=== PATIENT | female | born 2000 | race Caucasian/White ===

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

== ENCOUNTER → 2024-01-08 | Outpatient (CLI) | payer BC ==
--- NOTE | 2024-01-08 12:23 | US ---
EXAMINATION TYPE: US kidneys/renal and bladder DATE OF EXAM: 01/08/2024 COMPARISON: NONE CLINICAL INDICATION: Female, 23 years old with history of N13.30 UNSPECIFIED HYDRONEPHROSIS; pt state s she had a CT at [facility] in November and it showed hydro in left kidney EXAM MEASUREMENTS: Right Kidney: 10.1 x 4.7 x 3.7 cm Left Kidney: 10.9 x 6.3 x 5.7 cm Right Kidney: dilated renal pelvis Left Kidney: dilated renal pelvis Bladder: wnl Bilateral Jets seen: No No nephrolithiasis is seen. No masses are identified. The urinary bladder is anechoic. Bilateral u reteral jets are seen. IMPRESSION: Mild hydronephrosis.
== END | disposition home or self-care (01) ==
LOC: RADUSWWP 11:18
PROVIDERS: ATTEND Urology
DX: N13.30 Unspecified hydronephrosis (principal)
CPT/HCPCS: 76770

== ENCOUNTER → 2024-05-02 | Outpatient (CLI) | payer BC ==
--- NOTE | 2024-05-02 22:05 | US ---
EXAMINATION TYPE: US kidneys/renal and bladder DATE OF EXAM: 05/02/2024 COMPARISON: US 01/08/2024 CLINICAL INDICATION: Female, 23 years old with history of N13.30 UNSPECIFIED HYDRONEPHROSIS; Follow u p, exam done with empty bladder per physicians request TECHNIQUE: Grayscale imaging of the bilateral kidneys and urinary bladder: FINDINGS: EXAM MEASUREMENTS: Right Kidney: 10.8 x 3.7 x 5.1 cm Left Kidney: 10.7 x 5.8 x 4.3 cm Right Kidney: wnl Left Kidney: wnl Bladder: not distended, appears wnl as seen. Performed with the bladder empty per request. Bilateral Jets seen: no IMPRESSION: 1. Unremarkable pelvic ultrasound [facility], , 05/02/2024 10:03 PM
== END | disposition home or self-care (01) ==
LOC: RADUSWWP 12:15
PROVIDERS: ATTEND Urology
DX: N13.30 Unspecified hydronephrosis (principal)
CPT/HCPCS: 76770